=== PATIENT | male | born 1945 | race Caucasian/White ===

== ENCOUNTER 2017-12-25 06:27 | Inpatient (IN) ==
--- NOTE | 2017-12-20 13:18 | ANES ---
Anesthesia Pre Procedure Eval HOME MEDICATIONS amiodarone 100 mg tablet 100 mg PO DAILY 11/29/17 [Last Taken Unknown] apixaban 5 mg tablet 5 mg PO BID 11/29/17 [Last Taken Unknown] cholecalciferol (vitamin D3) 400 unit tablet 400 unit PO DAILY 11/29/17 [Last Taken Unknown] doxazosin 4 mg tablet 4 mg PO DAILY 11/29/17 [Last Taken Unknown] furosemide 40 mg tablet 40 mg PO DAILY 11/29/17 [Last Taken Unknown] ibuprofen 200 mg tablet 400 mg PO .COMPLEX PRN tab 11/29/17 [Last Taken Unknown ] levothyroxine 88 mcg capsule 88 mcg PO DAILY 11/29/17 [Last Taken Unknown] lisinopril 10 mg tablet 10 mg PO DAILY 11/29/17 [Last Taken Unknown] venlafaxine 75 mg tablet 75 mg PO DAILY tab 11/29/17 [Last Taken Unknown] carvedilol 12.5 mg tablet 12.5 mg PO BID 11/30/17 [Last Taken Unknown] Allergies/Adverse Reactions: Allergies Allergy/AdvReac Type Severity Reaction Status Date / Time No Known Allergies Allergy Unverified 11/30/17 11:11 - Planned Procedure Planned Procedure: Arthroplasty Total Knee Right Medication List Reviewed:: Yes Allergies Verified: Yes Medical History (Last Reviewed 12/20/17 @ 13:14 by Aly Muhammad CRNA) BPH (benign prostatic hyperplasia) Heart disease Hypertension Hypothyroid Inguinal hernia Surgical History (Last Reviewed 12/20/17 @ 13:14 by Aly Muhammad CRNA) Pacemaker Hx of inguinal herniorrhaphy Family History (Last Reviewed 12/20/17 @ 13:14 by Aly Muhammad CRNA) Mother CHF (congestive heart failure) Breast cancer Father Heart disease Prostate cancer Alzheimers disease - Family Anesthesia History Family History:: no untoward family reactions to anesthesia - Airway/Neck/Teeth Teeth Condition: Intact - Respiratory Smoking Status: Never smoker Sleep Apnea currently treated: No Sleep Apnea by current assessment: Yes - Cardiovascular Patient History - Cardiac/Respiratory: Hypertension, Sleep Apnea Tolerates Activity: Fair - Anesthesia Assessment and Plan ASA Class: PS, III Anesthesia Type Plan: Spinal - adductor canal block for postop analgesia
[~2017-12-25 06:27] MED LIST: ROPIVACAINE HCL/PF 100 MG, EPINEPHrine 0.2 MG, KETOROLAC TROMETHAMINE 30 MG in NORMAL S... IJ PRN; TRANEXAMIC ACID 1,000 MG in NORMAL SALINE 100 ML IV PRN; ceFAZolin SODIUM 1 GM VIAL IV PRN
[2017-12-25] MEDS: RINGER'S SOLUTION,LACTATED 1,000 ML IV PRN ×2 (07:18→09:27)
[2017-12-25] MEDS ORDERED: ONDANSETRON HCL/PF 2 MG/ML VIAL IV PRN (09:53)
[2017-12-25] MEDS ORDERED: MORPHINE SULFATE 2 MG/ML DISP.SYRIN IV PRN (09:53)
[2017-12-25] MEDS ORDERED: MAG HYDROX/ALUMINUM HYD/SIMETH 30 ML UDC PO PRN (09:53)
[2017-12-25] MEDS ORDERED: ACETAMINOPHEN 500 MG TABLET PO PRN (09:53)
[2017-12-25] MEDS ORDERED: diphenhydrAMINE HCL 50 MG/ML VIAL IV PRN (09:53)
[2017-12-25] MEDS ORDERED: MAGNESIUM HYDROXIDE 30 ML UDC PO PRN (09:53)
[2017-12-25] MEDS ORDERED: ZOLPIDEM TARTRATE 5 MG TABLET PO PRN (09:53)
--- NOTE | 2017-12-25 09:53 | OR ---
Operative Report - Dictated Report Narrative: Date: 12/25/2017 Preoperative diagnosis: Left Knee degenerative joint disease. Postoperative diagnosis: Left Knee degenerative joint disease. Procedure: Left Total knee arthroplasty. Surgeon: Daniel Triplett M.D. Multifocal Button Inspector: Adam Wolff PA-C Anesthesia: Spinal with regional block and local periarticular joint injection. Complications: None Specimens: Bone for disposal. Estimated blood loss: Minimal. Tourniquet time: 90 Minutes at 325 millimeters of mercury. Retained implants: Depuy Attune size 8 left lugged cemented posterior stabilized femoral component. Size 8 fixed-bearing cemented tibial platform. 8 by 5 millimeter posterior stabilized cross-linked tibial insert. 41 millimeter medialized patella button. Indications: Mr. Wood is a 72-year-old gentleman who has had long-standing left knee pain and arthrosis. This patient was followed in my clinic for period of time with significant complaints of left knee pain consistent with arthritic changes. He had failed conservative measures including, but not limited to, activity modification, passage of time, medications, and other conservative measures. Patient wished to proceed with surgical treatment. The risks, benefits, and alternatives were discussed in clinic. The risks of , blood clots, bleeding, infection, nerve/tendon blood vessel/ injury, malposition of components, intraoperative fracture, postoperative limited range of motion, persistent pain, failure of components, and need for additional procedures. Patient wished to proceed consent was obtained after answering all questions. Procedure: After marking the correct extremity on the floor, the patient was taken to the operating room. A timeout was performed. IV antibiotics consisting of Ancef were administered prior to the procedure. A regional followed by spinal anesthetic was induced by anesthesia, per my request, on the operative table with all bony prominences well-padded. Arthur catheter was placed, and a bump was placed under the operative side buttock. SCDs and REEMA hose were utilized on the nonoperative leg. A well-padded tourniquet was applied to the operative thigh. The operative leg was then pre-scrubbed with alcohol prepped, and draped in a standard sterile fashion. After exsanguinating the extremity with an Esmarch bandage, the tourniquet was inflated. After marking out the anterior knee for standard incision centered over the patella, the skin was incised and dissected down to the joint retinaculum. The joint retinaculum was marked out as well as the horizontal axis of the patella, and a standard medial parapatellar arthrotomy was then made. The most proximal aspect of the quadriceps tendon and the patella tendon insertion were protected from release. A partial synovectomy was performed as well as a resection of the infrapatellar fat pad. The distal femoral fat pad proximal to the trochlea was also resected using cautery. The soft tissues were elevated off the medial aspect of the proximal tibia using a Marin elevator ensuring that we did not transect the medial collateral ligament. Upon initial evaluation range of motion was approximately 5 degrees to 130 degrees of flexion. There were signs of advanced arthrosis in the medial, lateral, and patellofemoral joint spaces. There were large marginal osteophytes which were removed with a rongeur. The knee was hyperflexed and the patella was tucked laterally. Protecting the surrounding soft tissues with Homans, an entry drill was placed down the femoral canal using Whitesides line for guidance into the entry point. The intramedullary femoral alignment kal was utilized in order to cut the distal femur in 5 degrees of valgus resecting 10 millimeters of bone. Next the distal femur was sized to a size 8. A posterior referencing guide was utilized to place the distal femoral cutting block in 3 degrees of external rotation. This was pinned into place. The rotation was confirmed both visually and based on anatomic landmarks. The 4 in 1 cutting jig of the appropriate size was utilized in order to make all bony cuts. The angle wing was used to ensure no notching. Retractors were utilized in order to protect surrounding soft tissues. This cut did not result in any excessive notching. We then cut the box centered over the distal femur. This allowed for resection of the anterior and posterior cruciate ligaments. I then turned my attention to the preparation of the tibia. Using an extra medullary tibial alignment kal, 2 millimeters of bone was resected off the medial articular surface. This was made perpendicular to the mechanical axis of the joint with the alignment kal centered over the ankle mortise. The alignment kal was checked and was noted to be parallel to the mechanical axis, centered over the medial one third of the tibial tubercle, paralleling the anterior surface of the tibia. We then turned our attention to the remaining meniscus and soft tissues. These were removed while protecting the surrounding ligaments and soft tissues. The marginal osteophytes off the anterior, posterior, medial, lateral aspects of the femur and tibia were removed. The tibia was sized out to a size 8. Next the tibia was drilled and punched in an externally rotated position. Next the trial femur and a series of tibial inserts were utilized in order to allow for full extension and maximal flexion. It was found that a 5 millimeter insert gave the best range of motion and stability at multiple flexion points as well as at full extension there was less than 2 mm of gapping both medially and laterally. There is minimal anterior translation with the knee at 90 degrees of flexion and no signs of being able to dislocate the knee. The patella was then prepared. The initial thickness was 26 millimeters. This was reamed down to 15 millimeters parallel to the anterior surface of the patella. It was sized out to a size 41 medialized patella button. This was then drilled and trialed. Without any medial restraint the patella tracked appropriately and did not sublux or dislocate. At this point, it was felt these were the appropriate sized implants, and all trials were removed. The standard periarticular joint injection consisting of ropivacaine, Toradol, and epinephrine were injected into the periarticular joint tissues. The bony surfaces were thoroughly irrigated with a pulsatile- suction saline irrigation device. A bone plug from the prior resected anterior chamfer cut was placed into the drill hole at the distal femur. The bony surfaces were then dried in preparation for placement of the implants. The cement was vacuum mixed per the director of industrial relations's instructions. The cement was placed on the dry bony surfaces and posterior aspect of the implants. The implants were impacted into place, removing all extruded cement. At this point anesthesia administered tranexamic acid per protocol intravenously. The knee was placed in extension with axial loading with the trial insert while the cement cured. Once the cement cured, all remaining extruded cement was removed. The knee was placed through a range of motion with the trial insert to ensure appropriate range of motion and stability. Final range of motion was approximately 0 to 130 degrees. The knee was again thoroughly irrigated with pulsatile saline lavage. The final polyethylene insert was then impacted into place ensuring no retained soft tissues. The remaining periarticular joint injection was injected. A medium Hemovac drain was placed exiting superior laterally. The knee was then placed over a triangle and the arthrotomy was closed with interrupted #1 Vicryl after thoroughly irrigating the joint. The deep and subcutaneous tissues were closed with interrupted 0 and 3-0 Vicryl respectively. Skin was closed with a running subcutaneous 3-0 Monocryl and Prineo Dermabond dressing. 4 x 4's, Sof-Rol, and a full leg Sal wrap were applied. All sponge, needle, blade, and instrument counts were correct prior to closing the wounds. Postoperative condition: The patient was awoken and transferred to the postanesthesia care unit in stable condition. Plan is to be admitted to the inpatient medical/surgical floor postoperatively for 24 hours of IV antibiotics , physical therapy, occupational therapy, and medical comanagement. Patient will be weightbearing as tolerated with range of motion as tolerated. DVT prophylaxis will be with SCDs, REEMA hose, and pharmacological anticoagulation. Anticipated hospital stay is approximately 1-3 days.
--- NOTE | 2017-12-25 10:10 | ANES ---
Anesthesia Procedure Note Procedure Note: ANESTHESIA PROCEDURE NOTE Date of Procedure: 12/25/2017 Time of procedure: 7:45 AM. Performed by: SOLOMON Smyth CRNA, MSN Datawarehouse Developer: Britta Tubbs RN. Preprocedure diagnosis: Post total knee arthroplasty. Post procedure diagnosis: Same. Procedure: Left Adductor Canal Block. Indications: Post total knee arthroplasty pain relief. Findings: See below. Details of the procedure: The patient was brought to OR #2 and placed in supine position. The patient's left femoral area to the knee was prepped with chlorhexidine and using ultrasound guidance the left femoral artery and nerve was identified and then followed to the level of the adductor canal. Lidocaine 1% was infiltrated to the skin of the intended injection site. Under ultrasound guidance the saphenous nerve was approached with visualization of a 4 inch shielded block needle. Once saphenous nerve was identified with proximity to the needle tip, the saphenous nerve was surrounded with 20 mL bupivacaine 0.25% with 1-200,000 epinephrine. Please see radiology/ultrasound report for details and retained images of the procedure. EBL: 0 Fluids: N/A. Specimen: N/A. Post procedure condition: The patient tolerated the procedure well. No complications were noted. Thank you for this consultation. Robert Dobbins CRNA, ARNP, MSN
--- NOTE | 2017-12-25 10:11 | ANES ---
Post Anesthesia Discharge - Transfer of Care Transfer of Care handoff given to nurse: Yes - Discharge from PACU Discharge from PACU when meets criteria: Yes - Alert and comfortable
[2017-12-25] MEDS: DEXTROSE 5%-LACTATED RINGERS 1,000 ML IV PRN ×2 (10:57→19:14)
[2017-12-25] MEDS: ceFAZolin SODIUM 1 GM in DEXTROSE 5 % IN WATER 100 ML IV SCH ×6 (11:38→23:38)
[2017-12-25] MEDS: KETOROLAC TROMETHAMINE 15 MG/ML VIAL IV SCH ×3 (11:39→23:37)
--- NOTE | 2017-12-25 13:03 | ANES ---
Post Anesthesia Assessment - Vital Signs Vitals: Last Vital Signs Temp 36.6 C 12/25/17 12:23 Pulse 59 L 12/25/17 12:23 Resp 16 12/25/17 12:23 BP 148/81 12/25/17 12:23 Pulse Ox 100 12/25/17 12:23 Airway Patency: Normal - Mental Status Level Of Consciousness: Awake, Alert, Appropriate - Pain Level Pain Score: 0 - N/V Assessment Nausea/Vomiting Presence: None Dehydration:: No
[2017-12-25] MEDS: CARVEDILOL 12.5 MG TABLET PO SCH (21:00)
[2017-12-25] MEDS ORDERED: SENNOSIDES/DOCUSATE SODIUM 1 TAB TABLET PO SCH (21:00)
[2017-12-26] MEDS: DEXTROSE 5%-LACTATED RINGERS 1,000 ML IV PRN (03:54)
[2017-12-26] MEDS: KETOROLAC TROMETHAMINE 15 MG/ML VIAL IV SCH ×3 (04:52→16:58)
[2017-12-26 05:16] LABS: Hematocrit 34.6 % (42.0-52.0); Mean Cell Volume 93.5 fl (78-100); Mean Corpuscular Hemoglobin 32.4 pg (27-31); Mean Corpuscular Hgb Conc 34.7 g/dl (32-36); Mean Platelet Volume 10.5 fl (8-11.3); Platelet Count 116 K/mm3 (150-450); Red Cell Distribution Width 14.2 % (11.5-14.0); White Blood Count 7.3 K/mm3 (4.0-10.5)
[2017-12-26 05:20] LABS: Anion Gap 11.2 mmol/L (6.8-13.8); Calcium * 8.1 mg/dL (7.9-10.9); Carbon Dioxide 28.8 mmol/L (24-32.6); Estimated Creat Clear 39.6
[2017-12-26] MEDS ORDERED: LEVOTHYROXINE SODIUM 88 MCG TABLET PO SCH (07:00)
[2017-12-26] MEDS: CARVEDILOL 12.5 MG TABLET PO SCH (08:13)
--- NOTE | 2017-12-26 08:15 | PN ---
Subjective - Date and Time Seen Date: 12/26/17 Time: 08:11 Subjective Narrative: Pain controlled. No nausea or vomiting. No lightheadedness. No chest pain or shortness of breath. No complaints this am. Objective Objective Narrative: Bandages C/D/I. N/V intact LLE. Calf supple. Drain intact- nursing reports still over 200mls after clamping off. - Vitals Vitals: Last Vital Signs Temp 36.8 C 12/26/17 04:00 Pulse 60 12/26/17 04:00 Resp 16 12/26/17 04:00 BP 127/77 12/26/17 04:00 Pulse Ox 96 12/26/17 04:00 - Abnormal Lab Findings Abnormal Lab Findings: Abnormal Lab Results 12/26/17 12/26/17 Range/Units 05:12 05:12 RBC 3.70 L (4.7-6.0) M/mm3 Hgb 12.0 L (13.5-18.0) gm/dL Hct 34.6 L (42.0-52.0) % MCH 32.4 H (27-31) pg RDW 14.2 H (11.5-14.0) % Plt Count 116 L (150-450) K/mm3 BUN 27 H (6-23) mg/dL Creatinine 1.42 H (0.4-1.4) mg/dL Est GFR (Non-Af Amer) 52 L (60-130) mL/min Random Glucose 113 H (70-110) mg/dL - Exam Constitutional: Present: Alert, Oriented x3, Cooperative, No distress Cauti Physician Documentation - Urinary Catheter Management Urethral (Arthur) Date of Insertion: 12/25/17 Time of Insertion: 08:15 Assessment/Plan - Problems/Diagnosis (1) S/P total knee arthroplasty Problem: Acute Narrative: PT, anticoagulation, pain control, continue drain until at least this afternoon to monitor output, pull if decreasing, (2) Acute blood loss anemia Problem: Acute Narrative: observation (3) Hypertension Problem: Chronic (4) CAD (coronary artery disease) Problem: Chronic
[2017-12-26] MEDS ORDERED: AMIODARONE HCL 200 MG TABLET PO SCH (09:00)
[2017-12-26] MEDS ORDERED: DOXAZOSIN MESYLATE 2 MG TABLET PO SCH (09:00)
[2017-12-26] MEDS ORDERED: LISINOPRIL 20 MG TABLET PO SCH (09:00)
[2017-12-26] MEDS ORDERED: CHOLECALCIFEROL 400 UNIT TABLET PO SCH (09:00)
[2017-12-26] MEDS ORDERED: EZETIMIBE 10 MG TABLET PO SCH (09:00)
[2017-12-26] MEDS ORDERED: FUROSEMIDE 40 MG TABLET PO SCH (09:00)
[2017-12-26] MEDS ORDERED: APIXABAN 5 MG TABLET PO SCH (09:00)
[2017-12-26] MEDS ORDERED: VENLAFAXINE HCL 37.5 MG CAP.SR.24H PO SCH (09:00)
[2017-12-26] MEDS: oxyCODONE HCL/ACETAMINOPHEN 1 TAB TABLET PO PRN ×2 (10:19→16:54)
--- NOTE | 2017-12-26 12:24 | DS ---
(1) S/P total knee arthroplasty Problem: Acute (2) Acute blood loss anemia Problem: Acute (3) Hypertension Problem: Chronic (4) CAD (coronary artery disease) Problem: Chronic Description of Stay: Mr. Blake was admitted to the floor after undergoing left total knee arthroplasty. Tolerated this well. Was admitted to the floor postoperatively for 24 hours of IV antibiotics, pain control, medical comanagement, and occupational and physical therapy. OT and PT were consulted to assist with activities of daily living and ambulation. Was made weightbearing as tolerated with range of motion as tolerated. Pain was initially controlled with IV regimen. This was transitioned to oral once tolerating a by mouth intake. Was resumed on home diet and medications. Had a Arthur catheter inserted and the operating room which was discontinued on postoperative day 1. A drain was placed intraoperatively into the knee which was discontinued on postoperative day 1. Eliquis SCD and REEMA hose were utilized for DVT prophylaxis. Vital signs remained stable to the hospital course. Serial labs were obtained which showed a final hemoglobin of 12.0 grams. BMP was reviewed and was stable. Physical examination throughout the hospital course showed an extremity that had sensation that was intact to light touch, palpable pulses, a benign wound, motor intact to the toes, ankle, and knee. Knee range of motion was approximately 5 degrees to 70 degrees. Once an oral pain regimen was tolerated and physical therapy goals were met, it was felt that they were stable for discharge to home. Instructions: Continue with weightbearing as tolerated and range of motion as tolerated. It is OK to shower on the wound if it is not draining. If you note any drainage or for comfort you can cover with dry gauze and tape. Change every 2-3 days as needed. Continue with physical therapy. Resume home diet. Report any fever over 101.5 Fahrenheit, uncontrolled pain, increased drainage, foul odor of drainage, new or increased calf pain or shortness of breath, or any other significant complaints. Continue with REEMA hose on the operative extremity until instructed otherwise. No driving until instructed otherwise. Follow up in approximately 10-14 days. Procedures Performed: see notes below List Procedures: Left total knee arthroplasty Results and Findings: Lab Pending Results 12/26/17 05:12: WBC 7.3, RBC 3.70 L, Hgb 12.0 L, Hct 34.6 L, MCV 93.5, MCH 32.4 H, MCHC 34.7, RDW 14.2 H, Plt Count 116 L, MPV 10.5 12/26/17 05:12: Sodium 141, Plasma Sodium 141, Potassium 4.0, Chloride 105, Carbon Dioxide 28.8, Anion Gap 11.2, BUN 27 H, Creatinine 1.42 H, Est GFR (Non- Af Amer) 52 L, BUN/Creatinine Ratio 19.0, Random Glucose 113 H, Calcium 8.1 Disposition: Home self-care Condition: Good Discharge Activity: Activity as tolerated, Weight bearing, Other - with walker Discharge Diet: Low salt, Low fat/chol Additional Patient Instructions (free text): Physical Therapy at [facility] in [place] on MondayDecember 27 at 1:00pm, please fax d/c order to fax # [phone]. Follow up appointment for Orthopedics Dr Triplett on Monday01/16/18 at 9:45am. Prescriptions (Any new or edited meds): oxyCODONE HCL/ACETAMINOPHEN [Percocet 5 MG/325 MG] 2 tab PO Q4H PRN #90 tablet PRN Reason: Moderate Pain (Pain Scale 4-6) Sennosides/Docusate Sodium [Senokot-S] 2 tab PO HS #30 tab Complete Home Medications List: Complete Home Medication List: amiodarone 100 mg tablet 100 mg PO DAILY 11/29/17 apixaban 5 mg tablet 5 mg PO BID 11/29/17 cholecalciferol (vitamin D3) 400 unit tablet 400 unit PO DAILY 11/29/17 doxazosin 4 mg tablet 4 mg PO DAILY 11/29/17 furosemide 40 mg tablet 40 mg PO DAILY 11/29/17 levothyroxine 88 mcg capsule 88 mcg PO DAILY 11/29/17 venlafaxine 75 mg tablet 75 mg PO DAILY tab 11/29/17 carvedilol 12.5 mg tablet 12.5 mg PO BID 11/30/17 ezetimibe 10 mg tablet 10 mg PO DAILY 12/22/17 lisinopril 20 mg tablet 20 mg PO DAILY 12/22/17 Sennosides/Docusate Sodium [Senokot-S] 2 tab PO HS #30 tab 12/26/17 oxyCODONE HCL/ACETAMINOPHEN [Percocet 5 MG/325 MG] 2 tab PO Q4H PRN #90 tablet 12/26/17 Amb Orders for Discharge: PT Evaluation and Treatment* Facility: [facility], Location: Rehabilitation Services
[2017-12-26 17:37] VITALS: BP 154/79
== END 2017-12-26 17:55 | disposition home or self-care (01) | DRG 470 ==
LOC: MS 06:27 → EDSTATUS 08:00
PROVIDERS: ADMIT Orthopaedic Surgery; ATTEND Orthopaedic Surgery
CPT/HCPCS: 36415; 73560; 80048; 85027; 97110; 97116; 97161; 97166; 97530

== ENCOUNTER 2018-04-23 11:30 | Inpatient (IN) ==
[2018-05-09] MEDS ORDERED: ceFAZolin SODIUM 1 GM VIAL IV PRN (06:00)
[2018-05-09] MEDS ORDERED: MORPHINE SULFATE 15 MG TABLET.SA PO PRN (06:00)
[2018-05-09] MEDS ORDERED: TRANEXAMIC ACID 1,000 MG in NORMAL SALINE 100 ML IV PRN (06:00)
[2018-05-09] MEDS ORDERED: ROPIVACAINE HCL/PF 100 MG, EPINEPHrine 0.2 MG, KETOROLAC TROMETHAMINE 30 MG in NORMAL S... IJ PRN (06:00)
--- NOTE | 2018-05-09 07:00 | ANES ---
Anesthesia Pre Procedure Eval Vitals/Labs: Last Vital Signs Temp 36.7 C 05/09/18 06:39 Pulse 74 05/09/18 06:39 Resp 16 05/09/18 06:39 BP 123/89 05/09/18 06:39 HOME MEDICATIONS amiodarone 100 mg tablet 100 mg PO DAILY 11/29/17 [Last Taken 05/09/18 05:00] apixaban 5 mg tablet 5 mg PO BID 11/29/17 [Last Taken 05/03/18] cholecalciferol (vitamin D3) 400 unit tablet 400 unit PO DAILY 11/29/17 [Last Taken Unknown] doxazosin 4 mg tablet 4 mg PO DAILY 11/29/17 [Last Taken Unknown] furosemide 40 mg tablet 40 mg PO DAILY 11/29/17 [Last Taken Unknown] levothyroxine 88 mcg capsule 88 mcg PO DAILY 11/29/17 [Last Taken 05/09/18 05:00] venlafaxine 75 mg tablet 75 mg PO DAILY tab 11/29/17 [Last Taken Unknown] carvedilol 12.5 mg tablet 12.5 mg PO BID 11/30/17 [Last Taken 05/09/18 05:00] ezetimibe 10 mg tablet 10 mg PO DAILY 12/22/17 [Last Taken Unknown] lisinopril 20 mg tablet 20 mg PO DAILY 12/22/17 [Last Taken 05/09/18 05:00] Allergies/Adverse Reactions: Allergies Allergy/AdvReac Type Severity Reaction Status Date / Time No Known Allergies Allergy Verified 05/09/18 06:47 - Planned Procedure Planned Procedure: Arthroplasty Total Knee Right Medication List Reviewed:: Yes Allergies Verified: Yes Medical History (Last Reviewed 05/09/18 @ 06:55 by Robert Dobbins CRNA) arm infection Onset Date: ~04/2018 skin cancer removal Onset Date: ~2018 BPH (benign prostatic hyperplasia) Heart disease Hypertension Hypothyroid Inguinal hernia Surgical History (Last Reviewed 05/09/18 @ 06:56 by Robert Dobbins CRNA) History of arthroplasty of left knee Onset Date: ~12/25/[address] Triplett History of back surgery Pacemaker Hx of inguinal herniorrhaphy Family History (Last Reviewed 05/09/18 @ 06:56 by Robert Dobbins CRNA) Mother CHF (congestive heart failure) Breast cancer Father Heart disease Prostate cancer Alzheimers disease - Family Anesthesia History Family History:: no untoward family reactions to anesthesia, no familial bleeding tendencies, no family history of clotting disorders, no family history of premature - Airway/Neck/Teeth Within Normal Limits:: Yes Teeth Condition: intact Neck Exam: full range of motion Mallampatti Score: 4 Thyromental (T-M) distance: > 6 cm Mandibulo Hyoid distance: > 3 cm - Respiratory Respiratory History: sleep apnea, CPAP/BiPAP home use Respiratory Physical: lungs clear Smoking Status: Former smoker Sleep Apnea currently treated: Yes Sleep Apnea by current assessment: Yes Discussed Risks/Treatment of KENZIE: Yes - Cardiovascular Cardiac History: arrhythmia - pacemaker, afib, CHF, CAD, hypertension, hyperlipidemia Tolerate Activity: Fair Heart Sounds: S1 & S2, Regular - Anesthesia Assessment and Plan ASA Class: PS, III Anesthesia Type Plan: Block - for post op pain relief, Spinal - off eliquis for 6 days
[2018-05-09] MEDS: RINGER'S SOLUTION,LACTATED 1,000 ML IV PRN ×3 (07:27→10:31)
[2018-05-09] MEDS ORDERED: MAGNESIUM HYDROXIDE 30 ML UDC PO PRN (10:07)
[2018-05-09] MEDS ORDERED: MAG HYDROX/ALUMINUM HYD/SIMETH 30 ML UDC PO PRN (10:07)
[2018-05-09] MEDS ORDERED: ONDANSETRON HCL/PF 2 MG/ML VIAL IV PRN (10:07)
[2018-05-09] MEDS ORDERED: ZOLPIDEM TARTRATE 5 MG TABLET PO PRN (10:07)
[2018-05-09] MEDS ORDERED: oxyCODONE HCL/ACETAMINOPHEN 1 TAB TABLET PO PRN (10:07)
[2018-05-09] MEDS ORDERED: ACETAMINOPHEN 500 MG TABLET PO PRN (10:07)
[2018-05-09] MEDS ORDERED: MORPHINE SULFATE 2 MG/ML DISP.SYRIN IV PRN (10:07)
[2018-05-09] MEDS ORDERED: diphenhydrAMINE HCL 50 MG/ML VIAL IV PRN (10:07)
--- NOTE | 2018-05-09 10:11 | OR ---
Operative Report - Dictated Report Narrative: Date: 05/09/2018 Preoperative diagnosis: Right Knee degenerative joint disease. Postoperative diagnosis: Right Knee degenerative joint disease. Procedure: Right Total knee arthroplasty. Surgeon: Daniel Triplett M.D. Head Of English: Adam Wolff PA-C (provided and essential set of skilled, educated hands that assisted with transfer, positioning, prepping, draping, manipulation, retraction, placement of jigs, injection, insertion of implants, irrigation, closure wounds, and dressings all of which could not be performed by the available surgical crew) Anesthesia: Spinal with regional block and local periarticular joint injection. Complications: None Specimens: Bone for disposal. Estimated blood loss: Minimal. Tourniquet time: 110 Minutes at 325 millimeters of mercury. Retained implants: Depuy Attune size 8 right lugged cemented posterior stabilized femoral comp onent. Size 7 fixed-bearing cemented tibial platform. 8 by 7 millimeter posterior stabilized cross-linked tibial insert. 41 millimeter medialized patella button. Indications: Mr. Wood is a 73-year-old gentleman who has had long-standing right knee pain and arthrosis. This patient was followed in my clinic for period of time with significant complaints of right knee pain consistent with arthritic changes. He had failed conservative measures including, but not limited to, activity modification, passage of time, medications, and other conservative measures. Patient wished to proceed with surgical treatment. The risks, benefits, and alternatives were discussed in clinic. The risks of , blood clots, bleeding, infection, nerve/tendon blood vessel/ injury, malposition of components, intraoperative fracture, postoperative limited range of motion, persistent pain, failure of components, and need for additional procedures. Patient wished to proceed consent was obtained after answering all questions. Procedure: After marking the correct extremity on the floor, the patient was taken to the operating room. A timeout was performed. IV antibiotics consisting of Ancef were administered prior to the procedure. A regional followed by spinal anesthetic was induced by anesthesia, per my request, on the operative table with all bony prominences well-padded. Atrhur catheter was placed, and a bump was placed under the operative side buttock. SCDs and REEMA hose were utilized on the nonoperative leg. A well-padded tourniquet was applied to the operative thigh. The operative leg was then pre-scrubbed with alcohol, prepped, and draped in a standard sterile fashion. After exsanguinating the extremity with an Esmarch bandage, the tourniquet was inflated. After marking out the anterior knee for standard incision centered over the patella, the skin was incised and dissected down to the joint retinaculum. The joint retinaculum was marked out as well as the horizontal axis of the patella, and a standard medial parapatellar arthrotomy was then made. The most proximal aspect of the quadriceps tendon and the patella tendon insertion were protected from release. A partial synovectomy was performed as well as a resection of the infrapatellar fat pad. The distal femoral fat pad proximal to the trochlea was also resected using cautery. The soft tissues were elevated off the medial aspect of the proximal tibia using a Marin elevator ensuring that we did not transect the medial collateral ligament. Upon initial evaluation range of motion was approximately 0 degrees to 120 degrees of flexion. There were signs of advanced arthrosis in the medial and patellofemoral greater than lateral joint spaces. There were large marginal osteophytes which were removed with a rongeur. The knee was hyperflexed and the patella was tucked laterally. Protecting the surrounding soft tissues with Homans, an entry drill was placed down the femoral canal using Whitesides line for guidance into the entry point. The intramedullary femoral alignment kal was utilized in order to cut the distal femur in 5 degrees of valgus resecting 10 millimeters of bone. Next the distal femur was sized to a size 8. A posterior referencing guide was utilized to place the distal femoral cutting block in 3 degrees of external rotation. This was pinned into place. The rotation was confirmed both visually and based on anatomic landmarks. The 4 in 1 cutting jig of the appropriate size was utilized in order to make all bony cuts. The angle wing was used to ensure no notching. Retractors were utilized in order to protect surrounding soft tissues. This cut did not result in any excessive notching. We then cut the box centered over the distal femur. This allowed for resection of the anterior and posterior cruciate ligaments. I then turned my attention to the preparation of the tibia. Using an extra medullary tibial alignment kal, 2 millimeters of bone was resected off the medial articular surface. This was made perpendicular to the mechanical axis of the joint with the alignment kal centered over the ankle mortise. The alignment kal was checked and was noted to be parallel to the mechanical axis, centered over the medial one third of the tibial tubercle, paralleling the anterior surface of the tibia. We then turned our attention to the remaining meniscus and soft tissues. These were removed while protecting the surrounding ligaments and soft tissues. The marginal osteophytes off the anterior, posterior, medial, lateral aspects of the femur and tibia were r emoved. The tibia was sized out to a size 7. Next the tibia was drilled and punched in an externally rotated position. Next the trial femur and a series of tibial inserts were utilized in order to allow for full extension and maximal flexion. It was found that a 7 millimeter insert gave the best range of motion and stability at multiple flexion points as well as at full extension there was less than 2 mm of gapping both medially and laterally. There is minimal anterior translation with the knee at 90 degrees of flexion and no signs of being able to dislocate the knee. The patella was then prepared. The initial thickness was 26 millimeters. This was reamed down to 16 millimeters parallel to the anterior surface of the patella. It was sized out to a size 41 medialized patella button. This was then drilled and trialed. Without any medial restraint the patella tracked appropriately and did not sublux or dislocate. At this point, it was felt these were the appropriate sized implants, and all trials were removed. The standard periarticular joint injection consisting of ropivacaine, Toradol, and epinephrine were injected into the periarticular joint tissues. The bony surfaces were thoroughly irrigated with a pulsatile-suction saline irrigation device. A bone plug from the prior resected anterior chamfer cut was placed into the drill hole at the distal femur. The bony surfaces were then dried in preparation for placement of the implants. The cement was vacuum mixed per the talent agent's instructions. The cement was placed on the dry bony surfaces and posterior aspect of the implants. The implants were impacted into place, removing all extruded cement. At this point anesthesia administered tranexamic acid per protocol intravenously. The knee was placed in extension with axial loading with the trial insert while the cement cured. Once the cement cured, all remaining extruded cement was removed. The knee was placed through a range of motion with the trial insert to ensure appropriate range of motion and stability. Final range of motion was approximately 0 to 120 degrees. The knee was again thoroughly irrigated with pulsatile saline lavage. The fi nal polyethylene insert was then impacted into place ensuring no retained soft tissues. The remaining periarticular joint injection was injected. A medium Hemovac drain was placed exiting superior laterally. The knee was then placed over a triangle and the arthrotomy was closed with interrupted #1 Vicryl after thoroughly irrigating the joint. The deep and subcutaneous tissues were closed with interrupted 0 and 3-0 Vicryl respectively. Skin was closed with a running subcutaneous 3-0 Monocryl and Prineo Dermabond dressing. 4 x 4's, Sof-Rol, and a full leg Sal wrap were applied. All sponge, needle, blade, and instrument counts were correct prior to closing the wounds. Postoperative condition: The patient was awoken and transferred to the postanesthesia care unit in stable condition. Plan is to be admitted to the inpatient medical/surgical floor postoperatively for 24 hours of IV antibiotics, physical therapy, occupational therapy, and medical comanagement. Patient will be weightbearing as tolerated with range of motion as tolerated. DVT prophylaxis will be with SCDs, REEMA hose, and pharmacological anticoagulation. Anticipated hospital stay is approximately 1-3 days.
--- NOTE | 2018-05-09 10:22 | ANES ---
Anesthesia Procedure Note Procedure Note: ANESTHESIA PROCEDURE NOTE Date of Procedure: 05/09/2018 Time of procedure: 7:45 AM. Performed by: Robert Dobbins CRNA, MSN [employer] Buyer: Slime Alarcon RN. Preprocedure diagnosis: Post right total knee arthroplasty. Post procedure diagnosis: Same. Procedure: Right Adductor Canal Block. Indications: Post rate total knee arthroplasty pain relief. Findings: See below. Details of the procedure: The patient was brought to OR #4 and placed in supine position. The patient's right femoral area to the knee was prepped with chlorhexidine and using ultrasound guidance the right femoral artery was identified at approximately the proximal one third femur. Under ultrasound guidance the saphenous nerve was approached with visualization of a 4 inch shielded block needle approaching the adductor canal just under the sartorius muscle. Once saphenous nerve was identified with proximity to the needle tip, the saphenous nerve was surrounded with 20 mL bupivacaine 0.25% with 1-200,000 epinephrine. Please see radiology/ultrasound report for details and retained images of the procedure. EBL: 0 Fluids: N/A. Specimen: N/A. Post procedure condition: The patient tolerated the procedure well. No complications were noted. Thank you for this consultation. Robert Dobbins CRNA, MSN
--- NOTE | 2018-05-09 10:23 | ANES ---
Post Anesthesia Discharge - Transfer of Care Transfer of Care handoff given to nurse: Yes - Discharge from PACU Discharge from PACU when meets criteria: Yes - Comfortable in PACU.
[2018-05-09] MEDS: KETOROLAC TROMETHAMINE 15 MG/ML VIAL IV SCH ×3 (11:08→23:22)
[2018-05-09] MEDS: ceFAZolin SODIUM 1 GM in DEXTROSE 5 % IN WATER 100 ML IV SCH ×6 (11:08→23:21)
[2018-05-09] MEDS: DEXTROSE 5%-LACTATED RINGERS 1,000 ML IV PRN ×2 (11:09→20:03)
--- NOTE | 2018-05-09 11:28 | ANES ---
Post Anesthesia Assessment - Vital Signs Vitals: Last Vital Signs Temp 36.3 C 05/09/18 10:40 Pulse 61 05/09/18 10:40 Resp 18 05/09/18 10:40 BP 124/68 05/09/18 10:40 Pulse Ox 95 05/09/18 10:40 Airway Patency: Normal - Mental Status Level Of Consciousness: Awake, Alert, Appropriate - Pain Level Pain Score: 0 - N/V Assessment Nausea/Vomiting Presence: None Dehydration:: No
[2018-05-09] MEDS: CARVEDILOL 12.5 MG TABLET PO SCH (20:08)
[2018-05-09] MEDS: MORPHINE SULFATE 15 MG TABLET.SA PO SCH (20:08)
[2018-05-09] MEDS ORDERED: SENNOSIDES/DOCUSATE SODIUM 1 TAB TABLET PO SCH (21:00)
[2018-05-10] MEDS: DEXTROSE 5%-LACTATED RINGERS 1,000 ML IV PRN (04:09)
[2018-05-10] MEDS: KETOROLAC TROMETHAMINE 15 MG/ML VIAL IV SCH ×2 (04:20→11:03)
[2018-05-10 05:34] LABS: Hematocrit 34.6 % (42.0-52.0); Hemoglobin 11.9 gm/dL (13.5-18.0); Mean Cell Volume 91.3 fl (78-100); Mean Corpuscular Hemoglobin 31.4 pg (27-31); Mean Corpuscular Hgb Conc 34.4 g/dl (32-36); Mean Platelet Volume 10.3 fl (8-11.3); Platelet Count 126 K/mm3 (150-450); Red Blood Count 3.79 M/mm3 (4.7-6.0); Red Cell Distribution Width 14.2 % (11.5-14.0); White Blood Count 7.5 K/mm3 (4.0-10.5)
[2018-05-10 05:44] LABS: Anion Gap 11.4 mmol/L (6.8-13.8); Calcium * 8.3 mg/dL (7.9-10.9); Carbon Dioxide 22.7 mmol/L (24-32.6); Estimated Creat Clear 60.2; Potassium 4.1 mmol/L (3.4-4.6)
[2018-05-10] MEDS ORDERED: LEVOTHYROXINE SODIUM 88 MCG TABLET PO SCH (07:00)
[2018-05-10] MEDS ORDERED: CHOLECALCIFEROL 400 UNIT TABLET PO SCH (09:00)
[2018-05-10] MEDS ORDERED: VENLAFAXINE HCL 75 MG TABLET PO SCH (09:00)
[2018-05-10] MEDS ORDERED: APIXABAN 5 MG TABLET PO SCH (09:00)
[2018-05-10] MEDS ORDERED: DOXAZOSIN MESYLATE 2 MG TABLET PO SCH (09:00)
[2018-05-10] MEDS ORDERED: LISINOPRIL 20 MG TABLET PO SCH (09:00)
[2018-05-10] MEDS ORDERED: EZETIMIBE 10 MG TABLET PO SCH (09:00)
[2018-05-10] MEDS ORDERED: FUROSEMIDE 40 MG TABLET PO SCH (09:00)
[2018-05-10] MEDS ORDERED: AMIODARONE HCL 200 MG TABLET PO SCH (09:00)
[2018-05-10] MEDS ORDERED: ENOXAPARIN SODIUM 40 MG/0.4 ML SYRG SC SCH (09:07)
[2018-05-10] MEDS: MORPHINE SULFATE 15 MG TABLET.SA PO SCH (09:15)
[2018-05-10] MEDS: CARVEDILOL 12.5 MG TABLET PO SCH (09:16)
--- NOTE | 2018-05-10 12:44 | DS ---
(1) S/P total knee arthroplasty Problem: Chronic Qualifiers: (2) Acute blood loss anemia Problem: Acute (3) Hypertension Problem: Chronic (4) CAD (coronary artery disease) Problem: Chronic Description of Stay: Mr. Blake was admitted to the floor after undergoing right total knee arthroplasty. Tolerated this well. Was admitted to the floor postoperatively for 24 hours of IV antibiotics, pain control, medical comanagement, and occupational and physical therapy. OT and PT were consulted to assist with activities of daily living and ambulation. Was made weightbearing as tolerated with range of motion as tolerated. Pain was initially controlled with IV regimen. This was transitioned to oral once tolerating a by mouth intake. Was resumed on home diet and medications. Had a Arthur catheter inserted and the operating room which was discontinued on postoperative day 1. A drain was placed intraoperatively into the knee which was discontinued on postoperative day 1. Lovenox SCD and REEMA hose were utilized for DVT prophylaxis. Vital signs remained stable to the hospital course. Serial labs were obtained which showed a final hemoglobin of 11.6 grams. BMP was reviewed and was stable. Physical examination throughout the hospital course showed an extremity that had sensation that was intact to light touch, palpable pulses, a benign wound, motor intact to the toes, ankle, and knee. Knee range of motion was approximately 5 degrees to 70 degrees. Once an oral pain regimen was tolerated and physical therapy goals were met, it was felt that they were stable for discharge to home. Instructions: Continue with weightbearing as tolerated and range of motion as tolerated. It is OK to shower on the wound if it is not draining. If you note any drainage or for comfort you can cover with dry gauze and tape. Change every 2-3 days as needed. Continue with physical therapy. Resume home diet. Report any fever over 101.5 Fahrenheit, uncontrolled pain, increased drainage, foul odor of drainage, new or increased calf pain or shortness of breath, or any other significant complaints. Resume all normal 5 mg Eliquis daily dose for DVT prophylaxis.Continue with REEMA hose on the operative extremity until instructed otherwise. No driving until instructed otherwise. Follow up in approximately 10-14 days. Procedures Performed: see notes below List Procedures: Right total knee arthroplasty Results and Findings: Lab Pending Results 05/10/18 05:10: WBC 7.5, RBC 3.79 L, Hgb 11.9 L, Hct 34.6 L, MCV 91.3, MCH 31.4 H, MCHC 34.4, RDW 14.2 H, Plt Count 126 L, MPV 10.3 05/10/18 05:10: Sodium 138, Plasma Sodium 138, Potassium 4.1, Chloride 108 H, Carbon Dioxide 22.7 L, Anion Gap 11.4, BUN 22, Creatinine 1.16, Est GFR (Non-Af Amer) 66, BUN/Creatinine Ratio 19.0, Random Glucose 122 H, Calcium 8.3 Discharge Location: Home Disposition: Home self-care Condition: Good Discharge Activity: Activity as tolerated, Weight bearing, Other - with wheeled walker Discharge Diet: Low salt, Low fat/chol Additional Patient Instructions (free text): Physical Therapy at [facility] in [place] on MondayMay 14 at 2:30pm. Please fax demographic sheet and PT order to fax #[phone]. Follow up Orthopedic at Dr Triplett's office appointment on MondayMay 29 at 1:30pm. Prescriptions (Any new or edited meds): Morphine Sulfate [Ms Contin] 15 mg PO Q12H #20 tablet.sa oxyCODONE HCL/ACETAMINOPHEN [Percocet 5 MG/325 MG] 2 tab PO Q4H PRN #60 tab PRN Reason: Moderate Pain (Pain Scale 4-6) Sennosides/Docusate Sodium [Senokot-S] 2 tab PO HS #30 tablet Complete Home Medications List: Complete Home Medication List: amiodarone 100 mg tablet 100 mg PO DAILY 11/29/17 apixaban 5 mg tablet 5 mg PO BID 11/29/17 cholecalciferol (vitamin D3) 400 unit tablet 400 unit PO DAILY 11/29/17 doxazosin 4 mg tablet 4 mg PO DAILY 11/29/17 furosemide 40 mg tablet 40 mg PO DAILY 11/29/17 levothyroxine 88 mcg capsule 88 mcg PO DAILY 11/29/17 venlafaxine 75 mg tablet 75 mg PO DAILY tab 11/29/17 carvedilol 12.5 mg tablet 12.5 mg PO BID 11/30/17 ezetimibe 10 mg tablet 10 mg PO DAILY 12/22/17 lisinopril 20 mg tablet 20 mg PO DAILY 12/22/17 Morphine Sulfate [Ms Contin] 15 mg PO Q12H #20 tablet.sa 05/10/18 Sennosides/Docusate Sodium [Senokot-S] 2 tab PO HS #30 tablet 05/10/18 oxyCODONE HCL/ACETAMINOPHEN [Percocet 5 MG/325 MG] 2 tab PO Q4H PRN #60 tab 05/10/18 Amb Orders for Discharge: PT Evaluation and Treatment* Facility: [facility], Location: Rehabilitation Services
[2018-05-10 16:36] VITALS: BP 105/67
== END 2018-05-10 16:35 | disposition home or self-care (01) | DRG 470 ==
LOC: MS 05-09 06:29 → EDSTATUS 05-09 08:00
PROVIDERS: ADMIT Orthopaedic Surgery; ATTEND Orthopaedic Surgery
CPT/HCPCS: 36415; 73560; 80048; 85027; 97110; 97116; 97161; 97165

== ENCOUNTER 2018-06-26 22:15 | Observation (INO) ==
--- NOTE | 2018-06-26 23:27 | ERNOTE ---
Medical Problem HPI - General Chief Complaint: Laceration Time Seen by Provider: 06/26/18 23:17 Source: patient Exam Limitations: no limitations - Immun/Allergies/Home Medications Immunizations: IMMUNIZATION HX Immunizations Up to Date Yes History of Influenza Vaccine No Hx Pneumococcal Vaccination No Allergies/Adverse Reactions: Allergies No Known Allergies Allergy (Verified 06/27/18 01:49) Home Medications: HOME MEDICATIONS amiodarone 100 mg tablet 100 mg PO DAILY 11/29/17 [Last Taken 05/09/18 05:00] apixaban 5 mg tablet 5 mg PO BID 11/29/17 [Last Taken 05/03/18] cholecalciferol (vitamin D3) 400 unit tablet 400 unit PO DAILY 11/29/17 [Last Taken Unknown] doxazosin 4 mg tablet 4 mg PO DAILY 11/29/17 [Last Taken Unknown] furosemide 40 mg tablet 40 mg PO DAILY 11/29/17 [Last Taken Unknown] levothyroxine 88 mcg capsule 88 mcg PO DAILY 11/29/17 [Last Taken 05/09/18 05:00] venlafaxine 75 mg tablet 75 mg PO DAILY tab 11/29/17 [Last Taken Unknown] carvedilol 12.5 mg tablet 12.5 mg PO BID 11/30/17 [Last Taken 05/09/18 05:00] ezetimibe 10 mg tablet 10 mg PO DAILY 12/22/17 [Last Taken Unknown] lisinopril 20 mg tablet 20 mg PO DAILY 12/22/17 [Last Taken 05/09/18 05:00] - History of Present History Narrative: Pt had right total knee replacement 2 months ago and today fell on his knee and his surgical scar opened up. Timing: constant Severity: moderate Review of Systems - Review of Systems Constitutional: Absent: recent illness, fever, chills Musculoskeletal: Absent: joint pain, joint swelling Skin: Present: other - denies any problems with initial healing of the surgical wound. . Absent: rash, lesions, change in color Neurological: Absent: weakness, numbness, tingling Hematologic/Lymphatic: Absent: easy bruising, easy bleeding Medical History (Last Reviewed 06/26/18 @ 23:25 by Nghia Ramirez DO) arm infection Onset Date: ~04/2018 skin cancer removal Onset Date: ~2018 BPH (benign prostatic hyperplasia) Heart disease Hypertension Hypothyroid Inguinal hernia Right knee DJD (Resolved) Onset Date: Unknown Surgical History: Surgical History (Last Reviewed 06/26/18 @ 23:25 by Nghia Ramirez DO) Status post total right knee replacement (Chronic) 05/09/18 Ioana S/P total knee arthroplasty (Chronic) 12/25/17 Ioana History of arthroplasty of left knee Onset Date: ~12/25/[address] Triplett History of back surgery Pacemaker History of arthroplasty of right knee Onset Date: ~05/09/18 Dr. Triplett Hx of inguinal herniorrhaphy Family History: Family History (Last Reviewed 06/26/18 @ 23:25 by Nghia Ramirez DO) Mother CHF (congestive heart failure) Breast cancer Father Heart disease Prostate cancer Alzheimers disease Social History: Preferred Language Hebrew Smoking Status Former smoker Alcohol Use occasionally Drug Use none (Last Updated 06/14/18 @ 16:41 by Daniel Triplett MD) No Social History Section defined Physical Exam - Physical Exam General Appearance: Present: wd/wn, alert, no apparent distress Head Exam: Present: normal inspection, no evidence of injury Neck: Present: normal inspection, nontender, supple Respiratory: Present: no respiratory distress, no accessory muscle use Extremity Exam: Present: normal except - - wound over knee, non-tender, normal range of motion, no edema Neurological Exam: Present: alert, oriented, normal mood/affect, no motor/sensory deficits Skin Exam: Present: normal color, warm/dry, other - surgical wound over right knee is open 10 cm long no hardware visible, minimal bleeding Progress - Vital Signs Vital Signs: Vital Signs 06/26/18 22:24 Temperature 37.0 C Pulse Rate 68 Respiratory Rate 16 Blood Pressure 132/74 O2 Sat by Pulse Oximetry 97 - Progress/Reassessment Chief Complaint: Laceration Progress:: Improved Progress Note-Subjective: 06/27/18 00:[address] Lerma and he would like the pt admitted and Dr. Triplett will take him to surgery tomorrow to clean out the wound and close it. give pt dose of ancef tonight and cover wound with gauze and ANALISA. I spoke with Dr Kauffman and she agrees with admission. Departure Clinical Impression: Wound dehiscence, surgical Qualifiers: Encounter type: initial encounter Qualified Code(s): T81.31XA - Disruption of external operation (surgical) wound, not elsewhere classified, initial encounter - Departure Disposition: Still a patient Condition: Good
[2018-06-27] MEDS ORDERED: ceFAZolin SODIUM 1 GM VIAL IV ONE (00:41)
[2018-06-27] MEDS ORDERED: WATER FOR INJECTION,STERILE 20 ML VIAL ONE (01:04)
[2018-06-27] MEDS ORDERED: ceFAZolin SODIUM 1 GM in DEXTROSE 5 % IN WATER 100 ML IV ONE ×4 (02:00→12:20)
[2018-06-27 05:54] LABS: Hematocrit 40.3 % (42.0-52.0); Hemoglobin 13.4 gm/dL (13.5-18.0); Mean Cell Volume 92.4 fl (78-100); Mean Corpuscular Hemoglobin 30.7 pg (27-31); Mean Corpuscular Hgb Conc 33.3 g/dl (32-36); Mean Platelet Volume 9.5 fl (8-11.3); Neutrophil # 4.6 K/mm3 (1.3-6.0); Neutrophil % 68.4 % (42-75.0); Platelet Count 154 K/mm3 (150-450); Red Blood Count 4.36 M/mm3 (4.7-6.0); White Blood Count 6.7 K/mm3 (4.0-10.5)
[2018-06-27 06:03] LABS: BUN/Creatinine Ratio 17.1 (9.0-21.6); Calcium * 8.9 mg/dL (7.9-10.9); Carbon Dioxide 25.7 mmol/L (24-32.6); Estimated Creat Clear 63.1; Potassium 3.7 mmol/L (3.4-4.6)
[2018-06-27] MEDS ORDERED: ceFAZolin SODIUM 1 GM in DEXTROSE 5 % IN WATER 100 ML IV SCH ×2 (07:45)
--- NOTE | 2018-06-27 08:00 | CONS ---
[facility] - General Date of Service: 06/27/18 Narrative: Mr. Wood is a 73-year-old gentleman who underwent a right total knee arthroplasty on 05/09/2018. He was doing well status post operatively at his most recent visit and states that he had no significant concerns or pains. He fell last night resulting in a direct impact to the front of his knee and this resulted in a dehiscence of his wound. He was seen in emergency department and admitted for surgical intervention. He denies any significant pain this morning. He denies any fever or chills at home. Source: patient Exam Limitations: no limitations - History of Present Illness Timing/Duration: 24 hours Severity: mild Modifying Factors - (Worsens): Reports: other - no pain Modifying Factors - (Improves): Reports: immobilization Associated Symptoms: denies symptoms Allergies/Adverse Reactions: Allergies No Known Allergies Allergy (Verified 06/27/18 01:49) Home Medications: Home Medications Medication Instructions Recorded Last Taken amiodarone 100 mg tablet 100 mg PO DAILY 11/29/17 05/09/18 05:00 apixaban 5 mg tablet 5 mg PO BID 11/29/17 05/03/18 cholecalciferol (vitamin D3) 400 400 unit PO DAILY 11/29/17 Unknown unit tablet doxazosin 4 mg tablet 4 mg PO DAILY 11/29/17 Unknown furosemide 40 mg tablet 40 mg PO DAILY 11/29/17 Unknown levothyroxine 88 mcg capsule 88 mcg PO DAILY 11/29/17 05/09/18 05:00 venlafaxine 75 mg tablet 75 mg PO DAILY tab 11/29/17 Unknown carvedilol 12.5 mg tablet 12.5 mg PO BID 11/30/17 05/09/18 05:00 ezetimibe 10 mg tablet 10 mg PO DAILY 12/22/17 Unknown lisinopril 20 mg tablet 20 mg PO DAILY 12/22/17 05/09/18 05:00 Procedures Excision of Right Knee Joint, Open Approach (05/09/18) Introduction of Anesthetic Agent into Peripheral Nerves and Plexi, Percutaneous Approach (05/09/18) Other facilitation of intraocular circulation (04/26/05) Replacement of Right Knee Joint with Oxidized Zirconium on Polyethylene Synthetic Substitute, Cemented, Open Approach (05/09/18) Review of Systems - Review of Systems Generalized/Overall Review: Present: No Symptoms Reported Physical Examination - Exam Narrative: Right lower extremity: Dressings and replace with minimal bloody drainage. Dressings removed and wound demonstrates a 10 cm area of wound dehiscence with exposed underlying tissues. There are no grossly exposed implants. The remaining wound is intact. There are no gross signs of infection. Palpable dorsalis pedis pulse, sensation is intact light touch. She would flex and extend his knee ankle and toes with no pain Vital Signs: Vital Signs - Last Taken Temp 36.7 C 06/27/18 07:20 Pulse 63 06/27/18 07:20 Resp 12 06/27/18 07:20 BP 143/76 06/27/18 07:20 Pulse Ox 97 06/27/18 07:20 O2 Oxygen Delivery Method Room Air Constitutional: Present: Alert, Oriented x3 - Results and Findings: Narrative: Radiographs right knee: Status post total knee arthroplasty without sign of acute osseous complication Lab/Microbiology results last 24 hrs: Abnormal/Pending Laboratory Last 24 HRS 06/27/18 06/27/18 05:47 05:47 RBC 4.36 L Hgb 13.4 L Hct 40.3 L Anion Gap 14.0 H - Assessments/Findings (1) Wound dehiscence, surgical Diagnosis(s): He received IV Ancef and will continue to receive IV Ancef prophylactically until he undergoes surgical irrigation and debridement and repeat closure today. Depending on the integrity of his capsule, which I would hope at this point in the recovery is closed, he may require exchange of his polyethylene. He will remain nothing by mouth. If he is doing well he can go home tomorrow. Problem: Acute Qualifiers: Encounter type: initial encounter Qualified Code(s): T81.31XA - Disruption of external operation (surgical) wound, not elsewhere classified, initial encounter
[2018-06-27] MEDS: VENLAFAXINE HCL 75 MG TABLET PO SCH (08:51)
[2018-06-27] MEDS: FUROSEMIDE 40 MG TABLET PO SCH (08:51)
[2018-06-27] MEDS: CHOLECALCIFEROL 400 UNIT TABLET PO SCH (08:52)
[2018-06-27] MEDS: LEVOTHYROXINE SODIUM 88 MCG TABLET PO SCH (08:52)
[2018-06-27] MEDS: EZETIMIBE 10 MG TABLET PO SCH (08:53)
[2018-06-27] MEDS: DOXAZOSIN MESYLATE 2 MG TABLET PO SCH (08:56)
[2018-06-27] MEDS: AMIODARONE HCL 200 MG TABLET PO SCH (08:57)
[2018-06-27] MEDS: CARVEDILOL 12.5 MG TABLET PO SCH ×2 (08:57→21:21)
[2018-06-27] MEDS: LISINOPRIL 20 MG TABLET PO SCH (08:57)
--- NOTE | 2018-06-27 09:41 | HP ---
Chief Complaint - Chief Complaint Date of Service: 06/27/18 Time of Service: 09:10 Chief Complaint: Fall History of Present Illness: 73-year-old male who past medical history of BPH, hypertension, hypothyroidism, right knee degenerative joint disease status post total knee arthroplasty in April 2018 presents status post a mechanical fall in his kitchen. He states he slipped on a rug and fell on his knee. He presented to the emergency department and was found to have dehiscence of the wound on the right knee. He has been seen by orthopedics and is going for repair today. Medical History (Last Reviewed 06/26/18 @ 23:25 by Nghia Ramirez DO) arm infection Onset Date: ~04/2018 skin cancer removal Onset Date: ~2017 BPH (benign prostatic hyperplasia) Heart disease Hypertension Hypothyroid Inguinal hernia Right knee DJD (Resolved) Onset Date: Unknown Surgical History: Surgical History (Last Reviewed 06/26/18 @ 23:25 by Nghia Ramirez DO) Status post total right knee replacement (Chronic) 05/09/18 Ioana S/P total knee arthroplasty (Chronic) 12/25/17 Ioana History of arthroplasty of left knee Onset Date: ~12/25/[address] Triplett History of back surgery Pacemaker History of arthroplasty of right knee Onset Date: ~05/09/18 Dr. Triplett Hx of inguinal herniorrhaphy Family History: Family History (Last Reviewed 06/26/18 @ 23:25 by Nghia Ramirez DO) Mother CHF (congestive heart failure) Breast cancer Father Heart disease Prostate cancer Alzheimers disease Social History: Patient Lives/Resources Home Utilized Occupation Retired Preferred Language Stateless Do you have any worship or Yes: Pent[employer]ostalism cultural preference? Smoking Status Former smoker Have you smoked in the past 12 No months Do you dip or chew tobacco No Alcohol Use occasionally Drug Use none (Last Updated 06/14/18 @ 16:41 by Daniel Triplett MD) No Social History Section defined Review Of Systems (GEN) - Review of Systems Generalized/Overall Review: Absent: Fever Respiratory: Absent: Shortness of Breath Cardiac: Absent: Chest Pain, Palpitations Abdominal: Absent: Abdominal Pain Musculoskeletal: Absent: Joint Pain Misc: All systems neg except as marked Immunizations: IMMUNIZATION HX Immunizations Up to Date Yes History of Influenza Vaccine No Hx Pneumococcal Vaccination No Allergies/Adverse Reactions: Allergies Allergy/AdvReac Type Severity Reaction Status Date / Time No Known Allergies Allergy Verified 06/27/18 01:49 Home Medications: HOME MEDICATIONS amiodarone 100 mg tablet 100 mg PO DAILY 11/29/17 [Last Taken 05/09/18 05:00] apixaban 5 mg tablet 5 mg PO BID 11/29/17 [Last Taken 05/03/18] cholecalciferol (vitamin D3) 400 unit tablet 400 unit PO DAILY 11/29/17 [Last Taken Unknown] doxazosin 4 mg tablet 4 mg PO DAILY 11/29/17 [Last Taken Unknown] furosemide 40 mg tablet 40 mg PO DAILY 11/29/17 [Last Taken Unknown] levothyroxine 88 mcg capsule 88 mcg PO DAILY 11/29/17 [Last Taken 05/09/18 05:00] venlafaxine 75 mg tablet 75 mg PO DAILY tab 11/29/17 [Last Taken Unknown] carvedilol 12.5 mg tablet 12.5 mg PO BID 11/30/17 [Last Taken 05/09/18 05:00] ezetimibe 10 mg tablet 10 mg PO DAILY 12/22/17 [Last Taken Unknown] lisinopril 20 mg tablet 20 mg PO DAILY 12/22/17 [Last Taken 05/09/18 05:00] Exam - Exam Vital Signs: Vital Signs - Last Taken Temp 36.7 C 06/27/18 07:20 Pulse 63 06/27/18 08:57 Resp 12 06/27/18 07:20 BP 143/76 06/27/18 08:57 Pulse Ox 97 06/27/18 07:20 Constitutional: Present: Alert, Cooperative, Well developed, Well nourished, No distress, Elderly ENT Exam: Present: hearing grossly normal, moist mucous membranes Eye Exam: bilateral eye: normal inspection Neck: Present: non-tender, other - Lesion on the right lateral neck with some crusted blood.. Absent: lymphadenopathy (R), lymphadenopathy (L) Back Exam: Present: normal inspection. Absent: vertebral tenderness Respiratory: Present: lungs clear, no accessory muscle use, No wheezing. Absent: crackles, rhonchi Cardiovascular/Chest: Present: normal peripheral pulses, regular rate, rhythm, no edema, no murmur Peripheral Pulses: dorsalis-pedis (R): 2+, dorsalis-pedis (L): 2+ Abdomen: Present: Normal bowel sounds, soft, nontender Extremity: Present: non-tender, no pedal edema, other - Sal wrap in place on the right knee. Skin Exam: Present: normal color, warm/dry, no cyanosis Appearance: Present: appropriate appearance, appropriate insight Eye contact: Present: cooperative, good eye contact Thoughts: Present: normal thought pattern, normal mood /affect Diagnostic Studies: Abnormal Lab Results 06/27/18 06/27/18 Range/Units 05:47 05:47 RBC 4.36 L (4.7-6.0) M/mm3 Hgb 13.4 L (13.5-18.0) gm/dL Hct 40.3 L (42.0-52.0) % Anion Gap 14.0 H (6.8-13.8) mmol/L Laboratory Results WBC 6.7 K/mm3 (4.0-10.5) 06/27/18 05:47 RBC 4.36 M/mm3 (4.7-6.0) L 06/27/18 05:47 Hgb 13.4 gm/dL (13.5-18.0) L 06/27/18 05:47 Hct 40.3 % (42.0-52.0) L 06/27/18 05:47 MCV 92.4 fl (78-100) 06/27/18 05:47 MCH 30.7 pg (27-31) 06/27/18 05:47 MCHC 33.3 g/dl (32-36) 06/27/18 05:47 RDW 14.0 % (11.5-14.0) 06/27/18 05:47 Plt Count 154 K/mm3 (150-450) 06/27/18 05:47 MPV 9.5 fl (8-11.3) 06/27/18 05:47 Immature Gran % (Auto) 0.10 % (0.001-0.429) 06/27/18 05:47 Immature Gran # (Auto) 0.01 K/mm3 (0.000-0.0310) 06/27/18 05:47 Neutrophils % 68.4 % (42-75.0) 06/27/18 05:47 Lymphocytes % 22.6 % (20-51) 06/27/18 05:47 Monocytes % 6.7 % (0.0-9) 06/27/18 05:47 Eosinophils % 1.8 % (0.0-3.0) 06/27/18 05:47 Basophils % 0.4 % (0.0-1.0) 06/27/18 05:47 Nucleated RBC % 0.0 k/mm3 (0-1) 06/27/18 05:47 Neutrophils # 4.6 K/mm3 (1.3-6.0) 06/27/18 05:47 Lymphocytes # 1.52 k/mm3 (1.5-3.5) 06/27/18 05:47 Monocytes # 0.5 k/mm3 (0.0-1.0) 06/27/18 05:47 Eosinophils # 0.1 k/mm3 (0.0-0.7) 06/27/18 05:47 Absolute Basophils 0.0 k/mm3 (0.0-0.1) 06/27/18 05:47 Sodium 142 mmol/L (132-142) 06/27/18 05:47 Plasma Sodium 142 mmol/L (130-142) 06/27/18 05:47 Potassium 3.7 mmol/L (3.4-4.6) 06/27/18 05:47 Chloride 106 mmol/L (97-106) 06/27/18 05:47 Carbon Dioxide 25.7 mmol/L (24-32.6) 06/27/18 05:47 Anion Gap 14.0 mmol/L (6.8-13.8) H 06/27/18 05:47 BUN 19 mg/dL (6-23) 06/27/18 05:47 Creatinine 1.11 mg/dL (0.4-1.4) 06/27/18 05:47 Est GFR (Non-Af Amer) 69 mL/min (60-130) 06/27/18 05:47 BUN/Creatinine Ratio 17.1 (9.0-21.6) 06/27/18 05:47 Random Glucose 100 mg/dL (70-110) 06/27/18 05:47 Calcium 8.9 mg/dL (7.9-10.9) 06/27/18 05:47 Assessment/Plan - Narrative Narrative: 73-year-old male who past medical history of BPH, hypertension, hypothyroidism, right knee degenerative joint disease status post total knee arthroplasty in April 2018 presents status post a mechanical fall in his kitchen. He states he slipped on a rug and fell on his knee. He presented to the emergency department and was found to have dehiscence of the wound on the right knee. He has been seen by orthopedics and is going for repair today. He is medically cleared for surgery today. - Assessment/Plan (1) Wound dehiscence, surgical Assessment: Dr. Triplett has consulted on the patient and will take him to the operating room today. He will undergo surgical irrigation debridement and repeat closure. Problem: Acute Qualifiers: Encounter type: initial encounter Qualified Code(s): T81.31XA - Disruption of external operation (surgical) wound, not elsewhere classified, initial encounter (2) Hypertension Assessment: Stable resume home meds. Problem: Chronic Qualifiers: Hypertension type: essential hypertension Qualified Code(s): I10 - Essential (primary) hypertension (3) Hypothyroidism Assessment: Stable resume home meds. Problem: Acute (4) CAD (coronary artery disease) Assessment: Stable resume home meds. Problem: Chronic
--- NOTE | 2018-06-27 10:53 | ANES ---
Anesthesia Pre Procedure Eval Vitals/Labs: Last Vital Signs Temp 36.7 C 06/27/18 07:20 Pulse 63 06/27/18 08:57 Resp 12 06/27/18 07:20 BP 143/76 06/27/18 08:57 Pulse Ox 97 06/27/18 07:20 HOME MEDICATIONS amiodarone 100 mg tablet 100 mg PO DAILY 11/29/17 [Last Taken 05/09/18 05:00] apixaban 5 mg tablet 5 mg PO BID 11/29/17 [Last Taken 05/03/18] cholecalciferol (vitamin D3) 400 unit tablet 400 unit PO DAILY 11/29/17 [Last Taken Unknown] doxazosin 4 mg tablet 4 mg PO DAILY 11/29/17 [Last Taken Unknown] furosemide 40 mg tablet 40 mg PO DAILY 11/29/17 [Last Taken Unknown] levothyroxine 88 mcg capsule 88 mcg PO DAILY 11/29/17 [Last Taken 05/09/18 05:00] venlafaxine 75 mg tablet 75 mg PO DAILY tab 11/29/17 [Last Taken Unknown] carvedilol 12.5 mg tablet 12.5 mg PO BID 11/30/17 [Last Taken 05/09/18 05:00] ezetimibe 10 mg tablet 10 mg PO DAILY 12/22/17 [Last Taken Unknown] lisinopril 20 mg tablet 20 mg PO DAILY 12/22/17 [Last Taken 05/09/18 05:00] Allergies/Adverse Reactions: Allergies Allergy/AdvReac Type Severity Reaction Status Date / Time No Known Allergies Allergy Verified 06/27/18 01:49 - Planned Procedure Planned Procedure: WOUND DEHISCENCE Medication List Reviewed:: Yes Allergies Verified: Yes Medical History (Last Reviewed 06/27/18 @ 10:49 by Robert Dobbins CRNA) arm infection Onset Date: ~04/2018 skin cancer removal Onset Date: ~2017 BPH (benign prostatic hyperplasia) Heart disease Hypertension Hypothyroid Inguinal hernia Right knee DJD (Resolved) Onset Date: Unknown Surgical History (Last Reviewed 06/27/18 @ 10:49 by Robert Dobbins CRNA) Status post total right knee replacement (Chronic) 05/09/18 Ioana S/P total knee arthroplasty (Chronic) 12/25/17 Ioana History of arthroplasty of left knee Onset Date: ~12/25/[address] Triplett History of back surgery Pacemaker History of arthroplasty of right knee Onset Date: ~05/09/18 Dr. Triplett Hx of inguinal herniorrhaphy Family History (Last Reviewed 06/27/18 @ 10:49 by Robert Dobbins CRNA) Mother CHF (congestive heart failure) Breast cancer Father Heart disease Prostate cancer Alzheimers disease - Family Anesthesia History Family History:: no untoward family reactions to anesthesia, no familial bleeding tendencies, no family history of clotting disorders, no family history of premature - Airway/Neck/Teeth Teeth Condition: missing Neck Exam: full range of motion Mallampatti Score: 3 Thyromental (T-M) distance: > 6 cm Mandibulo Hyoid distance: > 3 cm - Respiratory Respiratory History: sleep apnea, CPAP/BiPAP home use Respiratory Physical: lungs clear Smoking Status: Former smoker Sleep Apnea currently treated: Yes Sleep Apnea by current assessment: Yes Discussed Risks/Treatment of KENZIE: Yes - Cardiovascular Cardiac History: arrhythmia, CHF, CAD, hypertension, hyperlipidemia Tolerate Activity: Fair Heart Sounds: S1 & S2, Regular - Anesthesia Assessment and Plan ASA Class: PS, III Anesthesia Type Plan: General LMA
[2018-06-27] MEDS: RINGER'S SOLUTION,LACTATED 1,000 ML IV PRN ×2 (12:00→16:35)
[2018-06-27] MEDS ORDERED: BUPIVACAINE HCL 50 ML VIAL IJ ONE (13:03)
[2018-06-27] MEDS ORDERED: diphenhydrAMINE HCL 50 MG/ML VIAL IV PRN (13:04)
[2018-06-27] MEDS ORDERED: ACETAMINOPHEN 500 MG TABLET PO PRN (13:04)
[2018-06-27] MEDS ORDERED: ONDANSETRON HCL/PF 2 MG/ML VIAL IV PRN (13:04)
[2018-06-27] MEDS ORDERED: MORPHINE SULFATE 2 MG/ML DISP.SYRIN IV PRN (13:04)
--- NOTE | 2018-06-27 13:07 | POSTOP NO ---
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
--- NOTE | 2018-06-27 13:31 | ANES ---
Post Anesthesia Discharge - Transfer of Care Transfer of Care handoff given to nurse: Yes - Discharge from PACU Discharge from PACU when meets criteria: Yes - Comfortable in PACU.
[2018-06-27] MEDS ORDERED: ceFAZolin SODIUM 1 GM in DEXTROSE 5 % IN WATER 50 ML IV SCH ×2 (13:45)
[2018-06-27] MEDS: ceFAZolin SODIUM 1 GM in DEXTROSE 5 % IN WATER 100 ML IV SCH ×4 (15:08→21:22)
--- NOTE | 2018-06-27 15:08 | ANES ---
Post Anesthesia Assessment - Vital Signs Vitals: Last Vital Signs Temp 36.7 C 06/27/18 13:35 Pulse 58 L 06/27/18 14:37 Resp 14 06/27/18 13:52 BP 132/57 06/27/18 14:37 Pulse Ox 96 06/27/18 14:37 Airway Patency: Normal - Mental Status Level Of Consciousness: Awake, Alert, Appropriate - Pain Level Pain Score: 3 - N/V Assessment Nausea/Vomiting Presence: None Dehydration:: No
[2018-06-27] MEDS: HYDROcodone/ACETAMINOPHEN 1 EACH TABLET PO PRN ×2 (15:12→21:23)
[2018-06-27] MEDS ORDERED: SENNOSIDES/DOCUSATE SODIUM 1 TAB TABLET PO SCH (21:00)
[2018-06-28] MEDS: ceFAZolin SODIUM 1 GM in DEXTROSE 5 % IN WATER 100 ML IV SCH ×2 (04:08)
[2018-06-28] MEDS: HYDROcodone/ACETAMINOPHEN 1 EACH TABLET PO PRN ×2 (05:00→14:27)
[2018-06-28 05:50] LABS: Hematocrit 38.3 % (42.0-52.0); Hemoglobin 12.6 gm/dL (13.5-18.0); Mean Cell Volume 94.1 fl (78-100); Mean Corpuscular Hgb Conc 32.9 g/dl (32-36); Neutrophil # 4.8 K/mm3 (1.3-6.0); Neutrophil % 67.6 % (42-75.0); Platelet Count 136 K/mm3 (150-450); Red Blood Count 4.07 M/mm3 (4.7-6.0); Red Cell Distribution Width 14.3 % (11.5-14.0); White Blood Count 7.2 K/mm3 (4.0-10.5)
[2018-06-28 06:05] LABS: Albumin * 3.1 gm/dl (3.4-5.0); Anion Gap 11.3 mmol/L (6.8-13.8); BUN/Creatinine Ratio 15.7 (9.0-21.6); Bilirubin, Total 0.4 mg/dL (0.0-1.1); Ca. Corrected For Albumin 8.9 mg/dL (8.4-10.2); Calcium * 8.5 mg/dL (7.9-10.9); Carbon Dioxide 26.5 mmol/L (24-32.6); Potassium 3.8 mmol/L (3.4-4.6); Total Protein 6.2 gm/dL (6.2-8.2)
[2018-06-28] MEDS: LEVOTHYROXINE SODIUM 88 MCG TABLET PO SCH (06:48)
[2018-06-28] MEDS: CHOLECALCIFEROL 400 UNIT TABLET PO SCH (08:32)
[2018-06-28] MEDS: VENLAFAXINE HCL 75 MG TABLET PO SCH (08:32)
[2018-06-28] MEDS: AMIODARONE HCL 200 MG TABLET PO SCH (08:33)
[2018-06-28] MEDS: CARVEDILOL 12.5 MG TABLET PO SCH (08:33)
[2018-06-28] MEDS: EZETIMIBE 10 MG TABLET PO SCH (08:33)
[2018-06-28] MEDS: DOXAZOSIN MESYLATE 2 MG TABLET PO SCH (08:34)
[2018-06-28] MEDS: FUROSEMIDE 40 MG TABLET PO SCH (08:34)
[2018-06-28] MEDS: LISINOPRIL 20 MG TABLET PO SCH (08:35)
--- NOTE | 2018-06-28 12:26 | DS ---
(1) Wound dehiscence, surgical Problem: Acute Qualifiers: Encounter type: initial encounter Qualified Code(s): T81.31XA - Disruption of external operation (surgical) wound, not elsewhere classified, initial encounter (2) Hypertension Problem: Chronic Qualifiers: Hypertension type: essential hypertension Qualified Code(s): I10 - Essential (primary) hypertension (3) Hypothyroidism Problem: Acute (4) CAD (coronary artery disease) Problem: Chronic Description of Stay: 73-year-old male who past medical history of BPH, hypertension, hypothyroidism, right knee degenerative joint disease status post total knee arthroplasty in April 2018 presents status post a mechanical fall in his kitchen. He states he slipped on a rug and fell on his knee. He presented to the emergency department and was found to have dehiscence of the wound on the right knee. He was seen by orthopedics, Dr. Triplett who took him to the OR on June 27, 2018 for irrigation and debridement with revision and closure of the right knee. He tolerated the procedure well. And is stable for discharge home today. Procedures Performed: see notes below List Procedures: Right knee irrigation and debridement with revision and closure on June 27, 2018, performed by Dr. Triplett. Results and Findings: Lab Pending Results 06/27/18 05:47: WBC 6.7, RBC 4.36 L, Hgb 13.4 L, Hct 40.3 L, MCV 92.4, MCH 30.7, MCHC 33.3, RDW 14.0, Plt Count 154, MPV 9.5, Immature Gran % (Auto) 0.10, Immature Gran # (Auto) 0.01, Neutrophils % 68.4, Lymphocytes % 22.6, Monocytes % 6.7, Eosinophils % 1.8, Basophils % 0.4, Nucleated RBC % 0.0, Neutrophils # 4.6, Lymphocytes # 1.52, Monocytes # 0.5, Eosinophils # 0.1, Absolute Basophils 0.0 06/27/18 05:47: Sodium 142, Plasma Sodium 142, Potassium 3.7, Chloride 106, Carbon Dioxide 25.7, Anion Gap 14.0 H, BUN 19, Creatinine 1.11, Est GFR (Non-Af Amer) 69, BUN/Creatinine Ratio 17.1, Random Glucose 100, Calcium 8.9 06/28/18 05:41: WBC 7.2, RBC 4.07 L, Hgb 12.6 L, Hct 38.3 L, MCV 94.1, MCH 31.0, MCHC 32.9, RDW 14.3 H, Plt Count 136 L, MPV 10.0, Immature Gran % (Auto) 0.30, Immature Gran # (Auto) 0.02, Neutrophils % 67.6, Lymphocytes % 23.1, Monocytes % 5.9, Eosinophils % 2.7, Basophils % 0.4, Nucleated RBC % 0.0, Neutrophils # 4.8, Lymphocytes # 1.65, Monocytes # 0.4, Eosinophils # 0.2, Absolute Basophils 0.0 06/28/18 05:41: Sodium 140, Plasma Sodium 140, Potassium 3.8, Chloride 106, Carbon Dioxide 26.5, Anion Gap 11.3, BUN 18, Creatinine 1.15, Est GFR (Non-Af Amer) 66, BUN/Creatinine Ratio 15.7, Random Glucose 111 H, Calcium 8.5, Calcium Adj for Albumin 8.9, Total Bilirubin 0.4, AST 13, ALT 12 L, Alkaline Phosphatase 68, Total Protein 6.2, Albumin 3.1 L Discharge Location: Home Disposition: Home self-care Condition: Good Discharge Activity: Activity as tolerated Discharge Diet: General/regular food Additional Patient Instructions (free text): -Please make TCM appointment unless prison discharge. Thank you! Ayanna @ [phone]. Keep wound clean/dry. Cover with rahat wrap and dry gauze. F/u w/ Ortho in 10-14 days. Prescriptions (Any new or edited meds): HYDROcodone/ACETAMINOPHEN [[place] 5-325] 2 ea PO Q6H PRN #28 tab PRN Reason: Moderate Pain (Pain Scale 4-6) Complete Home Medications List: Complete Home Medication List: amiodarone 100 mg tablet 100 mg PO DAILY 11/29/17 apixaban 5 mg tablet 5 mg PO BID 11/29/17 cholecalciferol (vitamin D3) 400 unit tablet 400 unit PO DAILY 11/29/17 doxazosin 4 mg tablet 4 mg PO DAILY 11/29/17 furosemide 40 mg tablet 40 mg PO DAILY 11/29/17 levothyroxine 88 mcg capsule 88 mcg PO DAILY 11/29/17 venlafaxine 75 mg tablet 75 mg PO DAILY tab 11/29/17 carvedilol 12.5 mg tablet 12.5 mg PO BID 11/30/17 ezetimibe 10 mg tablet 10 mg PO DAILY 12/22/17 lisinopril 20 mg tablet 20 mg PO DAILY 12/22/17 HYDROcodone/ACETAMINOPHEN [[place] 5-325] 2 ea PO Q6H PRN #28 tab 06/28/18
--- NOTE | 2018-06-28 12:51 | PN ---
Subjective - Date and Time Seen Date: 06/28/18 Time: 07:45 Subjective Narrative: Doing well. No complaints, no issues last night Objective - Vitals Vitals: Last Vital Signs Temp 36.8 C 06/28/18 10:48 Pulse 60 06/28/18 10:48 Resp 16 06/28/18 10:48 BP 102/57 06/28/18 10:48 Pulse Ox 95 06/28/18 10:48 - Abnormal Lab Findings Abnormal Lab Findings: Abnormal Lab Results 06/28/18 06/28/18 Range/Units 05:41 05:41 RBC 4.07 L (4.7-6.0) M/mm3 Hgb 12.6 L (13.5-18.0) gm/dL Hct 38.3 L (42.0-52.0) % RDW 14.3 H (11.5-14.0) % Plt Count 136 L (150-450) K/mm3 Random Glucose 111 H (70-110) mg/dL ALT 12 L (19-67) U/L Albumin 3.1 L (3.4-5.0) gm/dl - Exam Exam Narrative: RLE - dressings intact, NVI, drain in place Constitutional: Present: Alert, Oriented x3 Assessment/Plan - Problems/Diagnosis (1) Wound dehiscence, surgical Problem: Acute Qualifiers: Qualified Code(s): T81.31XA - Disruption of external operation (surgical) wound, not elsewhere classified, initial encounter Narrative: OK to DC home today. DC drain prior to DC home. Keep wound clean/dry. Cover with rahat wrap and dry gauze. F/u w/ Ortho in 10-14 days.
[2018-06-28 14:51] VITALS: BP 127/70
== END 2018-06-28 15:05 | disposition home or self-care (01) ==
LOC: ER 22:15 → MS 22:15
PROVIDERS: ADMIT Internal Medicine; ATTEND Internal Medicine
CPT/HCPCS: 36415; 73562; 80048; 80053; 85025; 96365; 99283; G0378